=== PATIENT | male | born 1995 | race Caucasian/White ===

== ENCOUNTER 2016-10-09 21:05 | Inpatient (IN) | payer MEDICAID ==
[2016-10-09 21:47] VITALS: BP 113/76
[2016-10-09] MEDS ORDERED: Hydrocodone/APAP 10 mg/325 mg Tab PO PRN (22:17)
[2016-10-09] MEDS ORDERED: Maalox 30 mL Cup PO PRN (22:17)
[2016-10-09] MEDS ORDERED: Hydrocodone/APAP 5mg/325mg Tab PO PRN (22:17)
[2016-10-09 22:57] LABS: PLATELET COUNT 123 Th/cmm (150-400)
[2016-10-09] MEDS ORDERED: cefTRIAXone 1 GM in Sodium Chloride 0.9% 50 ML IV SCH (23:00)
[2016-10-09 23:02] LABS: % BASOPHILS 0.7 % (0.0-2.0); % LYMPHOCYTES 8.1 % (20.0-50.0); % MONOCYTES 5.5 % (2.0-10.0); % NEUTROPHILS 85.7 % (40.0-80.0); HEMATOCRIT 34.2 % (39.0-49.0); HEMOGLOBIN 11.8 gm/dL (13.2-17.3); MEAN CELL VOLUME 87.8 fl (80-99); MEAN CORPUSCULAR HEMOGLOBIN 30.4 pg (26.0-30.0); MEAN CORPUSCULAR HGB CONC 34.6 pg (28.0-36.0); MEAN PLATELET VOLUME 8.9 fl; NEUTROPHILE ABSOLUTE 13.3 Th/cmm (1.8-8.0); RED BLOOD COUNT 3.89 Mil/cmm (4.30-5.70); RED CELL DISTRIBUTION WIDTH 12.6 % (11.5-20.0)
[2016-10-09 23:13] LABS: ALB/GLOB RATIO 1.2 (1.0-1.8); ALKALINE PHOSPHATASE 43 U/L (34-104); ANION GAP 14.4 (7.0-16.0); BILIRUBIN,TOTAL 0.8 mg/dL (0.3-1.0); BUN - UREA NITROGEN 8 mg/dL (7-25); BUN/CREATININE RATIO 26.7; CALCIUM SERUM 8.8 mg/dL (8.6-10.3); CARBON DIOXIDE 18.5 mEq/L (21.0-31.0); CHLORIDE 104 mEq/L (98-107); CREATININE - SERUM 0.3 mg/dL (0.7-1.3); GLUCOSE 96 mg/dL (70-105); SGOT 11 U/L (13-39); SGPT/ALT 8 U/L (7-52); SODIUM SERUM 134 mEq/L (136-145); WHITE BLOOD COUNT 15.4 Th/cmm (4.8-10.8)
[2016-10-09] MEDS: D5-0.9%NS 1,000 ML IV SCH (23:16)
[2016-10-09 23:21] LABS: POTASSIUM SERUM 2.9 mEq/L (3.5-5.1)
[2016-10-10] MEDS: KCL 20mEq/100mL Premix 20 MEQ/100 ML PIGGYBACK IV SCH ×3 (03:37→10:08)
[2016-10-10 07:02] LABS: % BASOPHILS 0.8 % (0.0-2.0); % EOSINOPHILS 0.1 % (0.0-5.0); % LYMPHOCYTES 7.6 % (20.0-50.0); % NEUTROPHILS 82.5 % (40.0-80.0); HEMATOCRIT 32.6 % (39.0-49.0); HEMOGLOBIN 11.6 gm/dL (13.2-17.3); MEAN CELL VOLUME 86.3 fl (80-99); MEAN CORPUSCULAR HEMOGLOBIN 30.8 pg (26.0-30.0); MEAN CORPUSCULAR HGB CONC 35.7 pg (28.0-36.0); MEAN PLATELET VOLUME 9.4 fl; NEUTROPHILE ABSOLUTE 10.4 Th/cmm (1.8-8.0); PLATELET COUNT 107 Th/cmm (150-400); RED BLOOD COUNT 3.77 Mil/cmm (4.30-5.70); RED CELL DISTRIBUTION WIDTH 12.7 % (11.5-20.0)
[2016-10-10 07:05] LABS: URINE BILIRUBIN NEGATIVE (NEGATIVE); URINE BLOOD LARGE (NEGATIVE); URINE COLOR YELLOW; URINE GLUCOSE (UA) NEGATIVE (NEGATIVE); URINE KETONE >=80 mg/dL (NEGATIVE); URINE PROTEIN NEGATIVE (NEGATIVE); URINE UROBILINOGEN 0.2 E.U./dL (0.2 - 1.0)
[2016-10-10 07:06] LABS: URINE RBC 25-50 /hpf (0-5)
[2016-10-10 07:08] LABS: ANION GAP 8.9 (7.0-16.0); BUN - UREA NITROGEN 6 mg/dL (7-25); CALCIUM SERUM 8.6 mg/dL (8.6-10.3); CARBON DIOXIDE 20.3 mEq/L (21.0-31.0); CHLORIDE 107 mEq/L (98-107); CREATININE - SERUM 0.3 mg/dL (0.7-1.3); GLUCOSE 130 mg/dL (70-105); POTASSIUM SERUM 3.2 mEq/L (3.5-5.1); SODIUM SERUM 133 mEq/L (136-145)
[2016-10-10 07:14] LABS: URINE BACTERIA NONE SEEN /hpf (NONE SEEN); URINE EPITHELIAL CELLS FEW /lpf (FEW); URINE WBC 25-50 /hpf (0-5)
[2016-10-10 07:32] LABS: WHITE BLOOD COUNT 12.5 Th/cmm (4.8-10.8)
[2016-10-10] MEDS ORDERED: cefTRIAXone 1 GM in Sodium Chloride 0.9% 50 ML IV SCH (09:00)
[2016-10-10] MEDS: D5-0.9%NS 1,000 ML IV SCH ×2 (11:40→23:53)
[2016-10-10] MEDS ORDERED: Potassium Chloride 20 mEq ER Tab PO ONE (12:04)
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
[2016-10-10] MEDS: Magnesium Hydroxide (MOM) 30 mL UDC PO PRN (22:00)
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
--- NOTE | 2016-10-11 04:23 | Admit Criteria Form ---
Admit Criteria Forms - Admit Criteria Diagnosis: SEPSIS and OTHER FEBRILE ILLNESS, W/O FOCAL INFECTION Clinical Indications for Admission to Inpatient Care ( Place 'X' for any and all applicable criteria): Admission is indicated for ANY ONE of the following (1)(2)(3)(4): [ ] I. Bacteremia [ X]II. Suspected or identified specific infection requiring hospitalization (eg, meningitis, endocarditis) [ ]III. Hemodynamic instability [ ]IV. Altered mental status [ ]V. Failure or unavailability of outpatient antimicrobial treatment [ ]. Hypoxemia [ ]VII. Seizures [ ]VIII. High-risk febrile neutropenia [ ]IX. Need for parenteral antibiotic in patient who is likely to abuse vascular access device (eg, injection drug user) [A](7) [ ]X. Temperature greater than 104.9 degrees F (40.5 degrees C) (oral) [X ]XI. Inpatient admission required rather than observation care because of ANY ONE of the following: [ ]1) Specific infection identified that is too severe for outpatient treatment or observation care trial [ ]2) Metabolic disorder (eg, hypoglycemia, hyperglycemia, metabolic acidosis) that is severe or persistent [ ]3) Temperature greater than 103.1 degrees F (39.5 degrees C) ( oral) that is not responsive to observation care treatment [ ]4) IV fluid to replace significant ongoing (eg, for over 24 hours) losses (> 3 L/m2 per day) [ ]5) Supplemental oxygen or respiratory treatments for over 24 hours that is performable only in acute inpatient setting [ ]6) Parenteral nutrition regimen need that must be implemented on inpatient basis [ ]7) Strict or protective (eg, laminar flow) isolation [X ]8) Other condition, treatment or monitoring requiring inpatient admission Extended stay beyond goal length of stay may be needed for(1)(3) [ ]a) Sepsis or septic shock(22) [ ]b) Positive blood cultures [ ]c) Insufficient oral intake [ ]d) High-risk febrile neutropenia(29)(30) [ ]e) Continued fever and clinical instability [ ]f) Clinically active comorbid illness (e.g,heart failure, renal failure , diabetes) The original [employer] Access content created by [employer] has been revised. The portions of the content which have been revised are identified through the use of italic text or in bold, and [employer] [facility] [employer] has neither reviewed nor approved the modified material. All other unmodified content is copyright [facility]. Please see references footnoted in the original [facility] edition 2016 Admit Criteria Met?: Yes
[2016-10-11 06:23] LABS: % BASOPHILS 1.6 % (0.0-2.0); % EOSINOPHILS 0.2 % (0.0-5.0); % LYMPHOCYTES 15.6 % (20.0-50.0); % MONOCYTES 12.2 % (2.0-10.0); % NEUTROPHILS 70.4 % (40.0-80.0); HEMOGLOBIN 11.8 gm/dL (13.2-17.3); MEAN CORPUSCULAR HEMOGLOBIN 30.6 pg (26.0-30.0); MEAN CORPUSCULAR HGB CONC 34.7 pg (28.0-36.0); MEAN PLATELET VOLUME 9.9 fl; NEUTROPHILE ABSOLUTE 7.6 Th/cmm (1.8-8.0); PLATELET COUNT 132 Th/cmm (150-400); RED BLOOD COUNT 3.86 Mil/cmm (4.30-5.70); RED CELL DISTRIBUTION WIDTH 12.8 % (11.5-20.0); WHITE BLOOD COUNT 10.8 Th/cmm (4.8-10.8)
[2016-10-11 06:40] LABS: ANION GAP 7.9 (7.0-16.0); BUN - UREA NITROGEN 5 mg/dL (7-25); BUN/CREATININE RATIO 16.7; CALCIUM SERUM 8.5 mg/dL (8.6-10.3); CARBON DIOXIDE 24.1 mEq/L (21.0-31.0); CHLORIDE 108 mEq/L (98-107); CREATININE - SERUM 0.3 mg/dL (0.7-1.3); GLUCOSE 123 mg/dL (70-105); SODIUM SERUM 137 mEq/L (136-145)
[2016-10-11] MEDS: KCL 20mEq/100mL Premix 20 MEQ/100 ML PIGGYBACK IV SCH ×2 (10:04→12:05)
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
--- NOTE | 2016-10-11 12:19 | Diagnostic Imaging Report ---
Renal ultrasound HISTORY: Urosepsis The right kidney is increased in size (14.8 x 6.1 x 5.3 cm). No focal lesions. No hydronephrosis. The left kidney is also increased in size (13.6 x 6.5 x 5.6 cm). No focal lesions or hydronephrosis. The urinary bladder cannot be evaluated due to lack of distention. IMPRESSION: 1. Increased renal sizes bilaterally. Significance should be correlated clinically 2. No focal renal lesions or hydronephrosis
[2016-10-12] MEDS: D5-0.9%NS 1,000 ML IV SCH (00:48)
[2016-10-12 05:20] LABS: HEMOGLOBIN 12.2 gm/dL (13.2-17.3)
[2016-10-12 05:36] LABS: % BASOPHILS 1.3 % (0.0-2.0); % EOSINOPHILS 1.3 % (0.0-5.0); % LYMPHOCYTES 25.7 % (20.0-50.0); % MONOCYTES 10.9 % (2.0-10.0); % NEUTROPHILS 60.8 % (40.0-80.0); HEMATOCRIT 35.8 % (39.0-49.0); MEAN CORPUSCULAR HEMOGLOBIN 30.3 pg (26.0-30.0); MEAN PLATELET VOLUME 9.9 fl; RED BLOOD COUNT 4.02 Mil/cmm (4.30-5.70); RED CELL DISTRIBUTION WIDTH 12.7 % (11.5-20.0)
[2016-10-12 05:41] LABS: ANION GAP 10.9 (7.0-16.0); BUN - UREA NITROGEN 4 mg/dL (7-25); BUN/CREATININE RATIO 13.3; CALCIUM SERUM 8.8 mg/dL (8.6-10.3); CARBON DIOXIDE 24.6 mEq/L (21.0-31.0); CHLORIDE 107 mEq/L (98-107); CREATININE - SERUM 0.3 mg/dL (0.7-1.3); GLUCOSE 104 mg/dL (70-105); POTASSIUM SERUM 3.5 mEq/L (3.5-5.1); SODIUM SERUM 139 mEq/L (136-145)
[2016-10-12 05:44] LABS: PLATELET COUNT 165 Th/cmm (150-400); WHITE BLOOD COUNT 8.2 Th/cmm (4.8-10.8)
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
[2016-10-12] MEDS ORDERED: D5-0.9%NS 1,000 ML IV SCH (13:08)
[2016-10-12] MEDS ORDERED: Levofloxacin 500mg/100mL 500 MG/100 ML BAG IV SCH (14:00)
--- NOTE | 2016-10-12 14:59 | Diagnostic Imaging Report ---
CT scan abdomen and pelvis without intravenous contrast HISTORY: Pain, fever Total DLP equals 574 CTDI equals 11.1 Axial sections were obtained from the xiphoid process down to the pubic symphysis. Limited sections of the lower chest demonstrate minimal bilateral pleural effusions and/or pleural thickening. The liver exhibits a homogeneous parenchyma. No focal abnormalities. The spleen appears normal. No abnormality seen in the region of the pancreas area the exam of the right kidney demonstrates multiple punctate calculi within the medullary region. Mild hydronephrosis. This is related to a punctate (3 mm) calculus within the proximal portion of the right ureter. There is an approximate 2 mm nonobstructing calculus within the lower medullary region of the left kidney. The exam of the pelvis demonstrates preservation of normal fat planes. No abnormal soft tissue masses or abnormal fluid collections. Mildly distended stool-filled ascending colon noted. Mildly dilated air-filled descending and sigmoid colon noted along with mildly dilated small bowel. A Mcclellan catheter is seen within the urinary bladder. There are several punctate intraluminal densities along the posterior wall consistent with small calculi. IMPRESSION: 1. 3 mm calculus within the proximal portion of the right ureter associated with mild hydronephrosis. Additional bilateral nonobstructing punctate renal calculi are seen. 2. Punctate calculi within the urinary bladder 3. Mcclellan catheter 4. Mildly distended stool-filled ascending colon along with moderately dilated air-filled distal large bowel. 5. Suggestion of minimal bilateral pleural effusions and/or pleural thickening.
[2016-10-12] MEDS: Magnesium Hydroxide (MOM) 30 mL UDC PO PRN (22:35)
--- NOTE | 2016-10-13 05:33 | Progress Notes ---
DATE: 10/12/2016 SUBJECTIVE: The patient is awake, alert. The patient is on IV antibiotics. OBJECTIVE: VITAL SIGNS: seen CARDIOVASCULAR: S1, S2. RESPIRATORY: Clear. GI: soft, +bs LABORATORY DATA: seen. MICROBIOLOGY: Urine culture positive for K. pneumonia. ASSESSMENT: 1. Sepsis. 2. Urinary tract infection (due to K. pneumonia) 4. Quadriplegia. 6. Anemia PLAN: Continue current medications. Obtain labs in am. Further per consults. JOB# [id number] [facility]
[2016-10-13 06:02] LABS: HEMATOCRIT 35.6 % (39.0-49.0); HEMOGLOBIN 12.3 gm/dL (13.2-17.3); MEAN CELL VOLUME 87.5 fl (80-99); MEAN CORPUSCULAR HEMOGLOBIN 30.2 pg (26.0-30.0); MEAN CORPUSCULAR HGB CONC 34.5 pg (28.0-36.0); MEAN PLATELET VOLUME 8.8 fl; RED BLOOD COUNT 4.07 Mil/cmm (4.30-5.70)
[2016-10-13 06:05] LABS: WHITE BLOOD COUNT 5.6 Th/cmm (4.8-10.8)
[2016-10-13 06:06] LABS: PLATELET COUNT 210 Th/cmm (150-400)
[2016-10-13 06:24] LABS: ANION GAP 2.3 (7.0-16.0); BUN - UREA NITROGEN 5 mg/dL (7-25); BUN/CREATININE RATIO 16.7; CALCIUM SERUM 9.1 mg/dL (8.6-10.3); CARBON DIOXIDE 27.4 mEq/L (21.0-31.0); CHLORIDE 107 mEq/L (98-107); CREATININE - SERUM 0.3 mg/dL (0.7-1.3); GLUCOSE 110 mg/dL (70-105); POTASSIUM SERUM 3.7 mEq/L (3.5-5.1); SODIUM SERUM 133 mEq/L (136-145)
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
--- NOTE | 2016-11-04 01:40 | Discharge Summary ---
DATE OF DISCHARGE: 10/13/2016 DISCHARGE DIAGNOSES: 1. Sepsis. 2. Urinary tract infection secondary to K. Pneumonia. 3. Quadriplegia. 4. Anemia. HOSPITAL COURSE: The patient is a 21-year-old male who was transferred from [facility]. The patient was admitted with a diagnosis of sepsis, UTI, quadriplegia, leukocytosis, anemia, thrombocytopenia, hyponatremia, hypokalemia and hypoalbuminemia. The patient was admitted to Telemetry Unit at [facility]. Infectious Disease consultation obtained from Dr. Izabela Harvey. On recommendation from Infectious Disease, the patient was placed on IV Zosyn. Pancultures were obtained. Microbiology results showed MRSA screening from 10/09/2016 was negative. Urine culture for 10/09/2016 was gram-negative rods. UA culture from 10/10/2016 showed K. pneumonia. Blood culture from 10/10/2016 was negative. consultation was obtained from Nephrology regarding patient's hypokalemia. The patient was discharged home on p.o. antibiotics after discussion with Infectious Disease. [facility]# [id number] [facility]
== END 2016-10-13 12:25 | disposition home or self-care (01) | DRG 720 ==
LOC: TELE 21:05
PROVIDERS: ADMIT Preventive Medicine Preventive Medicine/Occupational Environmental Medicine; ATTEND Preventive Medicine Preventive Medicine/Occupational Environmental Medicine
DX: A41.9 Sepsis, unspecified organism (principal); G82.53 Quadriplegia, C5-C7 complete; D69.6 Thrombocytopenia, unspecified; E87.1 Hypo-osmolality and hyponatremia; E83.52 Hypercalcemia; N39.0 Urinary tract infection, site not specified; D64.9 Anemia, unspecified; E87.6 Hypokalemia; R73.9 Hyperglycemia, unspecified
CPT/HCPCS: 36415-UA; 76770-TC; 80048-TC; 80053-TC; 81001-TC; 83735-TC; 83930-90; 83935-90; 84133-TC; 84300-TC; 85007-TC; 85025-TC; 85027-TC; 85652-TC; 86141-TC; 87086-90; J0696; J1956; J2543; J3480; J7030; J7042; Q0162; Z7610